=== PATIENT | male | born 1990 | race Caucasian/White ===

== ENCOUNTER 2021-03-02 08:00 | Outpatient (CLI) | payer BC, SELFPAY ==
--- NOTE | 2021-03-06 16:12 | WPDHOLTEREM ---
Holter/Event Monitor Holter/Event Monitor Date of procedure: 03/02/21 Procedure Type: 24 hour holter monitor Indications: Abnormal heart beat Conclusion: 1. 24 hour holter monitor on 03/02/21. 2. Underlying rhythm is sinus rhythm. HR range 39-150 bpm; average HR 81 bpm. 3. There are 3 premature supraventricular complexes. No supraventricular tachycardia. 4. There are 5,726 premature ventricular complexes, 133 ventricular couplets, 2 ventricular triplets, 229 ventricular bigeminy and 675 ventricular trigeminy. No ventricular tachycardia. 5. No sinoatrial or atrioventricular blocks. No significant pauses greater than 2 seconds. 6. No symptoms available for correlation.
== END 2021-03-02 08:01 | disposition home or self-care (01) ==
PROVIDERS: PCP Internal Medicine; Visit Provider Physician Assistant
DX: R00.8 Other abnormalities of heart beat (principal)
CPT/HCPCS: 93225; 93226